=== PATIENT | male | born 1945 | race Asian ===

== ENCOUNTER 2016-05-27 12:40 | Emergency (ER) | payer MEDICARE, OTHER ==
[~2016-05-27] VITALS: Ht 167.6 cm; Wt 70.4 kg
[~2016-05-27 12:40] MED LIST: AMLO-147 PO; ASPI-664 PO; ATOR10TA65 PO; BENA10TA48 PO; CARV6.2579 PO; CLOP75TA27 PO; CYCL1DRO BOTH EYES; GLYB5TAB3 PO; HYDR25TA6 PO; SITA100T8 PO
[2016-05-27 12:42] VITALS: Ht 167.6 cm; Wt 70.4 kg
[2016-05-27] MEDS ORDERED: SOD CHLORIDE 0.9% 1,000 ML IV ONE (13:00)
[2016-05-27] MEDS ORDERED: HYDROmorphONE 1 MG/ML SYG IV STA (13:00)
[2016-05-27 13:22] LABS: ADD SCAN DIFF NO
[2016-05-27 13:26] LABS: BASOPHILS % 0.5 % (0.0-2.0); EOSINOPHILS # 0.1 10^3/ul (0.0-0.5); EOSINOPHILS % 0.9 % (0.0-7.0); HEMATOCRIT 43.4 % (42.0-52.0); LYMPHOCYTES # 1.3 10^3/ul (0.8-2.9); LYMPHOCYTES % 14.3 % (15.0-51.0); MEAN CORPUSCULAR HEMOGLOBIN 30.7 pg (29.0-33.0); MEAN CORPUSCULAR HGB CONC 34.6 g/dl (32.0-37.0); MEAN CORPUSCULAR VOLUME 88.8 fl (82.0-101.0); MEAN PLATELET VOLUME 9.9 fl (7.4-10.4); MONOCYTE # 0.5 10^3/ul (0.3-0.9); MONOCYTES % 5.6 % (0.0-11.0); NEUTROPHIL # 6.9 10^3/ul (1.6-7.5); NEUTROPHILS % 78.4 % (39.0-77.0); PLATELET COUNT 250 10^3/UL (140-415); RED BLOOD COUNT 4.89 10^6/ul (4.70-6.10); RED CELL DISTRIBUTION WIDTH 12.4 % (11.5-14.5); WHITE BLOOD COUNT 8.8 10^3/ul (4.8-10.8)
[2016-05-27] MEDS ORDERED: ATOR20TA38 PO (13:27)
[2016-05-27 13:33] LABS: ALBUMIN 4.2 g/dl (3.3-4.9); POTASSIUM 3.5 mmol/L (3.5-5.1)
[2016-05-27] MEDS ORDERED: APR50 PO (13:33)
[2016-05-27 13:35] LABS: CREATININE 0.88 mg/dl (0.61-1.24)
[2016-05-27 13:36] LABS: ALBUMIN/GLOBULIN RATIO 1.27; BILIRUBIN,INDIRECT 0.6 mg/dl (0-1.1); BILIRUBIN,TOTAL 0.6 mg/dl (0.2-1.3); TOTAL PROTEIN 7.5 g/dl (6.1-8.1)
[2016-05-27 13:54] LABS: ADD UMIC NO; URINE BILIRUBIN (Dip) NEGATIVE (NEGATIVE); URINE BLOOD (Dip) NEGATIVE (NEGATIVE); URINE COLOR LT. YELLOW (YELLOW); URINE GLUCOSE (Dip) >=1000 % (NEGATIVE); URINE KETONES (Dip) NEGATIVE (NEGATIVE); URINE LEUKOCYTE ESTERASE (Dip) NEGATIVE (NEGATIVE); URINE NITRITE (Dip) NEGATIVE (NEGATIVE); URINE TOTAL PROTEIN (Dip) NEGATIVE (NEGATIVE); URINE UROBILINOGEN (Dip) 0.2 E.U./dL (0.1-1.0)
--- NOTE | 2016-05-27 14:22 | RADRPT ---
PROCEDURE: CT Abdomen and Pelvis without contrast. CLINICAL INDICATION: Right-sided abdominal and pelvic pain. TECHNIQUE: CT scan of the abdomen and pelvis without contrast was performed. Coronal and sagittal reformatted images were obtained from the axial source images. Images were reviewed on a high-resolu [employer] PACS workstation. Total exam DLP is 534.08 mGy-cm. CTDIvol is 8.86 mGy. One or more of the fo llowin dose reduction techniques were used: Automated exposure control, adjustment of the mA and/or kV according to patient size, use of iterative reconstruction technique. COMPARISON: None. FINDINGS: The lung bases are normal. There is no pleural effusion or pericardial effusion. There is coronary artery calcification. The liver is normal in size and attenuation. There is no focal hepatic lesion. The gallbladder and bile ducts are normal. The spleen is normal in size. There is no focal splenic lesion. Both adrenals are normal with no enlargement or mass. The pancreas is unremarkable with no mass or evidence of pancreatitis. There is no renal mass or hydronephrosis. There is no renal calculus or ureteral calculus. The abdominal aorta is not dilated. There is calcification in the aorta consistent with atheroscler osis. There is no retroperitoneal lymphadenopathy or mass. There is no pelvic lymphadenopathy or mass. The bladder and distal ureters are normal. The periappendiceal region is unremarkable with no evidence of appendicitis. The bowel and mesentery are normal. There is no free fluid or free gas. There are degenerative changes of the spine. There is no fracture or lytic lesion. IMPRESSION: 1. Coronary artery calcification. 2. Atherosclerosis. 3. Degenerative changes of the spine. 4. Otherwise normal noncontrast CT scan of the abdomen and pelvis. RPTAT: QQ .Gio Vasquez MD, MD Date Time Electronically viewed and signed by .Gio Vasquez MD, MD on 05/27/2016 14:22 .R/
[2016-05-27] MEDS ORDERED: IBUP-1542 PO (16:09)
[2016-05-27] MEDS ORDERED: CARI350T PO (16:09)
[2016-05-27] MEDS ORDERED: OXYC-279 PO (16:12)
[2016-05-27 16:15] VITALS: BP 162/17; PULSE 87; RESP 16; TEMP 99.1
--- NOTE | 2016-05-27 20:06 | ERD ---
ER Documentation Chief Complaint Date/Time DATE: 05/27/16 TIME: 20:01 Chief Complaint Pt with back pain that radiates to R leg since yesterday, severe pain today HPI 70-year-old man complains of right lower back pain radiating down the leg just past the knee since yesterday. He's been using ibuprofen at home without relief , and states symptoms began but were milder a few days ago while he was doing some yard work. He admits to lifting something heavy while working at that time. He denies loss of bowel or bladder control, no dysuria or hematuria, no fevers or chills, no chest pain or shortness of breath. Symptoms precipitated by movement, flexion at the back, or sitting for prolonged periods of time. ROS All systems reviewed and are negative except as per history of present illness. Medications Home Meds Active Scripts Oxycodone HCl/Acetaminophen (Percocet 5-325 mg Tablet) 1 Each Tablet, 1 EACH PO TID for PAIN LEVEL 6-10, #12 TAB Prov:LUTHER WORLEY MD 05/27/16 Carisoprodol* (Soma*) 350 Mg Tablet, 350 MG PO TID Y for MUSCLE SPASMS, #15 TAB Prov:LUTHER WORLEY MD 05/27/16 Ibuprofen* (Motrin*) 600 Mg Tab, 600 MG PO Q8 for PAIN AND/OR INFLAMMATION, #30 TAB Prov:LUTHER WORLEY MD 05/27/16 Aspirin* (Aspirin* EC) 81 Mg Tablet.dr, 81 MG PO DAILY for 30 Days, #30 Prov:Josh Hensley DO 08/31/15 Reported Medications Hydralazine Hcl* (Hydralazine Hcl*) 50 Mg Tab, 50 MG PO BID, #60 TAB 05/27/16 Atorvastatin Calcium* (Atorvastatin Calcium*) 20 Mg Tablet, 20 MG PO QHS, #30 TAB 05/27/16 Carvedilol* (Carvedilol*) 6.25 Mg Tablet, 6.25 MG PO BID, #60 TAB 08/31/15 Sitagliptin* (Januvia*) 100 Mg Tablet, 100 MG PO DAILY, #30 TAB 08/31/15 Glyburide* (Glyburide*) 5 Mg Tablet, 5 MG PO BID, #30 TAB 08/31/15 Amlodipine Besylate* (Amlodipine Besylate*) 10 Mg Tablet, 10 MG PO DAILY, #30 TAB 08/31/15 Hydrochlorothiazide (Hydrochlorothiazide) 25 Mg Tablet, 25 MG PO DAILY, #30 TAB 08/31/15 Discontinued Reported Medications Atorvastatin (Atorvastatin) 10 Mg Tablet, 20 MG PO QHS, #30 TAB 08/31/15 Benazepril Hcl* (Benazepril Hcl*) 10 Mg Tablet, 10 MG PO DAILY, #30 TAB 08/31/15 Cyclosporine (RESTASIS) 1 Each Droperette, 1 DROP BOTH EYES Q12, #1 BOX 08/31/15 Discontinued Scripts Clopidogrel Bisulfate (Clopidogrel) 75 Mg Tablet, 75 MG PO DAILY for 30 Days, # 30 TAB Prov:Josh Hensley DO 08/31/15 Allergies Allergies: Coded Allergies: No Known Allergy (Unverified , 05/27/16) PMhx/Soc Hypercholesterolemia, hypertension, coronary artery disease post RCA stent placement History of Surgery: Yes (ANGIOPLASTY WITH STENTS) Anesthesia Reaction: No Hx Neurological Disorder: No Hx Respiratory Disorders: No Hx Cardiac Disorders: Yes (HTN,HYPERLIPIDEMIA) Hx Psychiatric Problems: No Hx Miscellaneous Medical Probl: No Hx Alcohol Use: No Hx Substance Use: No Hx Tobacco Use: No Smoking Status: Never smoker FmHx Family History: No diabetes Physical Exam Vitals Vital Signs Date Time Temp Pulse Resp B/P Pulse Ox O2 Delivery O2 Flow Rate FiO2 05/27/16 16:15 99.1 87 16 162/17 98 Room Air 05/27/16 12:42 98.6 63 18 187/84 96 Physical Exam GENERAL: Well-developed, well-nourished, well-hydrated, in no apparent distress , looks nontoxic in appearance HEENT: Moist mucous membranes, pink conjunctiva, no cervical spine tenderness or step-off deformities, no goiter, no jaundice or icterus, extraocular movements intact without pain. No submandibular induration, and no pharyngeal erythema NEURO: Alert and oriented 3, cranial nerves II through XII intact bilaterally, pupils equal round reactive to light, no focal deficits or facial asymmetry, sensation intact distally Strength 5/5 in upper although right lower extremity strength diminished secondary to pain CARDIAC: Regular rate and rhythm, no murmurs rubs or gallops LUNGS: Clear bilaterally no wheezing crackles or stridor ABDOMEN: Soft nontender, no guarding, no rigidity, no rebound, no psoas sign no obturator sign. Normoactive bowel sounds SKIN: Warm and dry to touch, no abrasions, contusions, or hematomas, no lacerations, no ecchymosis, no target lesions, and without ulcers EXTREMITIES: No clubbing cyanosis or edema, positive straight leg test on the right negative on the left PSYCH: Normal affect without agitation or irritability Result Diagram: 05/27/16 1315 05/27/16 1315 Results 24 hrs Laboratory Tests Test 05/27/16 13:15 05/27/16 13:30 White Blood Count 8.810^3/ul Red Blood Count 4.8910^6/ul Hemoglobin 15.0g/dl Hematocrit 43.4% Mean Corpuscular Volume 88.8fl Mean Corpuscular Hemoglobin 30.7pg Mean Corpuscular Hemoglobin Concent 34.6g/dl Red Cell Distribution Width 12.4% Platelet Count 25423^3/UL Mean Platelet Volume 9.9fl Neutrophils % 78.4% Lymphocytes % 14.3% Monocytes % 5.6% Eosinophils % 0.9% Basophils % 0.5% Nucleated Red Blood Cells % 0.0/100WBC Neutrophils # 6.910^3/ul Lymphocytes # 1.310^3/ul Monocytes # 0.510^3/ul Eosinophils # 0.110^3/ul Basophils # 0.010^3/ul Nucleated Red Blood Cells # 0.010^3/ul Sodium Level 140mmol/L Potassium Level 3.5mmol/L Chloride Level 98mmol/L Carbon Dioxide Level 29mmol/L Anion Gap 17 Blood Urea Nitrogen 28mg/dl Creatinine 0.88mg/dl Glucose Level 218mg/dl Calcium Level 9.0mg/dl Total Bilirubin 0.6mg/dl Direct Bilirubin 0.00mg/dl Indirect Bilirubin 0.6mg/dl Aspartate Amino Transf (AST/SGOT) 21IU/L Alanine Aminotransferase (ALT/SGPT) 40IU/L Alkaline Phosphatase 68IU/L Total Protein 7.5g/dl Albumin 4.2g/dl Globulin 3.30g/dl Albumin/Globulin Ratio 1.27 Lipase 87U/L Urine Color LT. YELLOW Urine Clarity CLEAR Urine pH 5.5 Urine Specific [place] 1.020 Urine Ketones NEGATIVE Urine Nitrite NEGATIVE Urine Bilirubin NEGATIVE Urine Urobilinogen 0.2 E.U./dL Urine Leukocyte Esterase NEGATIVE Urine Hemoglobin NEGATIVE Urine Glucose >=1000% Urine Total Protein NEGATIVE Current Medications Medications (Trade) Dose Ordered Sig/Rah Route PRN Reason Start Time Stop Time Status Last Admin Dose Admin Sodium Chloride (NS) 1,000 ml @ 1,000 mls/hr Q1H ONCE IV 05/27/16 13:00 05/27/16 13:59 DC 05/27/16 13:15 Hydromorphone HCl (Dilaudid) 1 mg ONCE STAT IV 05/27/16 13:00 05/27/16 13:05 DC 05/27/16 13:15 Procedures/MDM IV line was established patient was placed on threat monitoring analyst rhythm strip revealed a sinus rhythm at about 70 bpm with upper P and T waves. Patient was afebrile. CT scan of abdomen pelvis was performed there was no acute inflammatory infectious pathology noted and no concerning findings of the lumbar or sacral back. Please refer to radiologist dictation for full report. I administered 1 L normal saline intravenously and hydromorphone 1 mg IV with excellent response. CBC and electrolyte are normal, liver function tests are normal. Urinalysis was unremarkable Differential diagnoses considered, included but not limited to acute coronary syndrome, pulmonary embolism, aortic dissection, abdominal aortic aneurysm, sepsis, stroke, meningitis, encephalitis, pneumonia, appendicitis, cholecystitis , bowel obstruction, pyelonephritis, nephrolithiasis, cystitis, as well as metabolic, hematologic, and electrolyte abnormalities. As well as abscess, cellulitis, fractures, and dislocations. Patient feels much better at this time, and vital signs are normal, symptoms have improved. I did give strict instructions to return to the ED if symptoms continue or worsen, patient will otherwise follow-up with primary care physician. Patient understood instructions and agreed to plan. Departure Diagnosis: Primary Impression: Sciatic leg pain Condition: Good Patient Instructions: Back Sprain/Strain, Back Pain W/ Sciatica LUTHER WORLEY MD May 27, 2016 20:06
== END 2016-05-27 16:30 | disposition home or self-care (01) ==
LOC: E/R 12:40
DX: M54.41 Lumbago with sciatica, right side (principal); M79.604 Pain in right leg; I10 Essential (primary) hypertension; I25.10 Atherosclerotic heart disease of native coronary artery without angina pectoris; E11.9 Type 2 diabetes mellitus without complications; Z79.82 Long term (current) use of aspirin; Z79.01 Long term (current) use of anticoagulants; Z79.84 Long term (current) use of oral hypoglycemic drugs; Z98.61 Coronary angioplasty status
CPT/HCPCS: 36415; 74176; 80053; 81003; 83690; 85025; 96374; 99285; J1170; J7030